=== PATIENT | female | born 1980 | race Asian ===

== ENCOUNTER → 2017-06-22 | Outpatient (CLI) | payer BC ==
[~2017-06-22] MED LIST: ASPI81TA28 PO; FERR1TAB61 PO; PRENTAB26 PO
[2017-06-22 13:04] LABS: BASO % 0.3 %; BASO ABS # 0.02 K/uL (0-0.2); COMPLETE YES; EOS % 0.6 %; IG% 0.4 %; LYMPH % 16.9 %; MEAN CELL VOLUME 92.8 fL (80-100); MEAN CORPUSCULAR HEMOGLOBIN 31.2 pg (25-34); MEAN CORPUSCULAR HGB CONC 33.6 g/dl (32-36); MEAN PLATELET VOLUME 11.9 fL (7.4-10.4); MONO % 6.5 %; NEUT % 75.3 %; PLATELET COUNT 155 K/uL (130-400); RED BLOOD COUNT 3.88 M/uL (4.2-5.4); WHITE BLOOD COUNT 7.08 K/uL (4.8-10.8)
== END | disposition home or self-care (01) ==
LOC: C.LAB 12:19
PROVIDERS: ATTEND Obstetrics & Gynecology
DX: Z01.818 Encounter for other preprocedural examination (principal)

== ENCOUNTER 2017-07-14 06:44 | Inpatient (IN) | payer BC, OTHER ==
--- NOTE | 2017-06-22 12:47 | PAT Medication Instructions ---
Service Date Jun 22, 2017. Current Home Medication List Aspirin (Aspirin Ec), 81 MG PO HS Ferrous Sulfate (Iron), 1 TAB PO BID Multivit/Min/Iron/Fol Ac/Pren ( Vitamin), 1 TAB PO noon Medication Instructions For Your Scheduled Surgery - Take the following medications as scheduled the day before before surgery: Aspirin (Aspirin Ec), 81 MG PO HS Ferrous Sulfate (Iron), 1 TAB PO BID Multivit/Min/Iron/Fol Ac/Pren ( Vitamin), 1 TAB PO noon - No medications the morning of the surgery. Nothing to eat or drink after midnight If you have any questions please call us at [phone] or [phone] or [phone]
[~2017-07-14] VITALS: Ht 167.6 cm; Wt 71.0 kg
[2017-07-14] VITALS (14 sets, daily range): BP systolic 112–120; BP diastolic 69–76; PULSE 62–77; TEMP 36.9–37; O2SAT 95–98; Ht 167.6 cm; Wt 71.0 kg
[~2017-07-14 06:44] MED LIST changes: +CITRIC ACID/SODIUM CITRATE 15 ML UDC PO SCH
[2017-07-14] MEDS ORDERED: FENTANYL CITRATE INJ 50 MCG/1 ML 2 ML VIAL ONE (07:24)
[2017-07-14] MEDS ORDERED: OXYTOCIN INJ 10 UNITS/ML VIAL ONE ×3 (07:24→10:13)
[2017-07-14] MEDS ORDERED: MoRPHine SULFATE PF 1 MG/ML 10 ML AMP/VIAL ONE (07:24)
[2017-07-14] MEDS ORDERED: EpHEDrine SULFATE INJ 50 MG/ML AMP ONE (07:25)
[2017-07-14] MEDS ORDERED: PHENYLEPHRINE HCL INJ 10 MG/ML VIAL ONE (07:25)
[2017-07-14] MEDS ORDERED: LACTATED RINGER'S 1000ML 1,000 ML IV SCH (07:30)
[2017-07-14] MEDS ORDERED: CEFAZOLIN IV 2,000 MG in SYRINGE 0 ML IV STA (07:32)
[2017-07-14 07:53] LABS: HEMATOCRIT 37.6 % (37-47); HEMOGLOBIN 12.8 g/dL (12.0-16.0); MEAN CELL VOLUME 92.4 fL (80-100); MEAN CORPUSCULAR HEMOGLOBIN 31.4 pg (25-34); MEAN PLATELET VOLUME 12.8 fL (7.4-10.4); PLATELET COUNT 147 K/uL (130-400); RED CELL DISTRIBUTION WIDTH CV 14.4 % (11.5-14.5); RED CELL DISTRIBUTION WIDTH SD 48.7 fL (36.4-46.3); WHITE BLOOD COUNT 6.09 K/uL (4.8-10.8)
[2017-07-14] MEDS ORDERED: NALOXONE HCL INJ 1 MG in SODIUM CHLORIDE 0.9% 1000ML 1,000 ML IV PRN ×5 (08:01→10:11)
--- NOTE | 2017-07-14 08:11 | History & Physical Bridge Note ---
H&P Re-Evaluation Bridge Note: I have examined the patient, reviewed the History & Physical and in the interval since the performance of the History & Physical I have noted the following changes of clinical significance: No changes noted
[2017-07-14] MEDS ORDERED: ONDANSETRON INJ 2 MG/ML 2 ML VIAL IV PRN ×2 (08:15→10:15)
[2017-07-14] MEDS ORDERED: PHENYLEPHRINE 100MCG/ML 5ML SYR IV PRN (08:15)
[2017-07-14] MEDS ORDERED: NALBUPHINE HCL INJ 10 MG/ML AMP IV PRN ×2 (08:15→10:15)
[2017-07-14] MEDS ORDERED: KETOROLAC TROMETHAMINE 30 MG/ML VIAL IV. PRN (08:15)
[2017-07-14] MEDS ORDERED: EpHEDrine SULFATE INJ 50 MG/ML AMP IV PRN ×2 (08:15→10:15)
[2017-07-14] MEDS ORDERED: ATROPINE SULFATE 0.1 MG/ML 5ML SYR IV PRN (08:15)
[2017-07-14] MEDS ORDERED: PROMETHAZINE HCL INJ 12.5 MG in SODIUM CHLORIDE 0.9% 50ML 50 ML IV PRN (08:15)
[2017-07-14] MEDS ORDERED: DiphenhydrAMINE HCL 50 MG/ML VIAL IV PRN ×2 (08:15→10:15)
[2017-07-14] MEDS ORDERED: FENTANYL CITRATE INJ 50 MCG/1 ML 2 ML VIAL IV PRN (08:15)
[2017-07-14] MEDS ORDERED: MISOPROSTOL 200 MCG TAB ONE (10:00)
[2017-07-14] MEDS ORDERED: LACTATED RINGER'S 1000ML 500 ML IV PRN (10:11)
[2017-07-14] MEDS ORDERED: NALOXONE HCL INJ 0.08 MG in SYRINGE 1.8 ML IV PRN (10:11)
[2017-07-14] MEDS ORDERED: SODIUM CHLORIDE 0.9% 1000ML 1,000 ML IV PRN (10:11)
[2017-07-14] MEDS ORDERED: NO NARCOTICS OR SEDATIVES SCH (10:15)
[2017-07-14] MEDS ORDERED: HYDROCORTISONE ACETATE 25 MG SUPP PR PRN (10:15)
[2017-07-14] MEDS ORDERED: NALOXONE HCL 0.4 MG/1 ML VIAL/CARP IV PRN (10:15)
[2017-07-14] MEDS ORDERED: LANOLIN OINT EXT PRN (10:15)
[2017-07-14] MEDS ORDERED: BENZOCAINE 20% AER SPR 82.5 GM CAN EXT PRN (10:15)
[2017-07-14] MEDS ORDERED: METOCLOPRAMIDE HCL INJ 20 MG in SODIUM CHLORIDE 0.9% 50ML 50 ML IV PRN (10:15)
[2017-07-14] MEDS ORDERED: SENNA 8.6 MG TAB PO PRN (10:15)
[2017-07-14] MEDS ORDERED: MoRPHine SULFATE PF 1 MG/ML 10 ML AMP/VIAL EPI PRN (10:15)
[2017-07-14] MEDS ORDERED: MAGNESIUM HYDROXIDE SUSP 30 ML UDC PO PRN (10:15)
[2017-07-14] MEDS ORDERED: SUPERCREAM 0.870 % 15GM JAR EXT PRN (10:15)
[2017-07-14] MEDS ORDERED: MoRPHine SULFATE 2 MG/ML CARP IV PRN (10:15)
[2017-07-14] MEDS ORDERED: MEPERIDINE HCL 25 MG/ML CARP IV PRN (10:15)
[2017-07-14] MEDS ORDERED: PROMETHAZINE HCL INJ 25 MG in SODIUM CHLORIDE 0.9% 50ML 50 ML IV PRN (10:15)
--- NOTE | 2017-07-14 10:40 | [facility] Post Operative Brief Note ---
Immediate Operative Summary Operative Date Jul 14, 2017. Pre-Operative Diagnosis Twin ; Cepahlic/Transverse Presentation;Malpresentation Post-Operative Diagnosis Same Procedure(s) Performed Primary Caesarean Section; Delivery of a live male child at 0907 and live female child at [address] Guillory Trade Economist Surgeon(s) Dr. Anthony Estimated Blood Loss 800 cc Findings dictated Fluids (cc crystalloids) 1200 Specimens cord blood for twin A and B placenta-exam Complication(s) None Disposition L&D
--- NOTE | 2017-07-14 11:08 | OPERATIVE REPORT ---
DATE OF OPERATION: 07/14/2017 INDICATION FOR PROCEDURE: This is a 37-year-old twin gestation at term, baby A is cephalic and baby B is in transverse presentation. After discussion with the patient, risks and benefits of section versus vaginal delivery the patient decided to undergo section. PREOPERATIVE DIAGNOSES: 1. Twin at term, di/di twins. 2. Cephalic transverse presentation. POSTOPERATIVE DIAGNOSIS: Same. PROCEDURE: section. SURGEON: Dr. Guillory. LENS COATER: Dr. Anthony. ANESTHESIA: Spinal. ESTIMATED BLOOD LOSS: 800 mL. IV FLUIDS: 1200 mL. URINE: 100 mL. FINDINGS: Live infants. Baby A was cephalic male, and details are in the pediatric record. Baby B was transverse and female. Abdominal findings are otherwise unremarkable. The uterus, adnexa appeared grossly normal. SPECIMEN: 1. Cord blood for baby A and B. 2. Placenta. DRAINS: Rehman catheter. COMPLICATIONS: None. DISPOSITION: Stable in recovery room. PROCEDURE: The patient was taken to the operating room where she was prepped and draped in normal sterile fashion. Timeout was called. A Pfannenstiel incision was made and carried down to the fascia. Fascia was incised in the midline and extended laterally on both sides. The fascia was sharply dissected off the rectus abdominis muscle. Peritoneum was identified and entered sharply. Once inside the abdomen, an Ricky retractor was placed for retraction. Vesicouterine peritoneum was sharply dissected off the lower segment of the uterus. A transverse incision was made with a scalpel and extended laterally on both sides with bandage scissors. Amniotomy was performed on baby A. Baby A was cephalic and delivered. Cord clamped and cut and handed over to the pediatric team. Amniotomy was performed on the . was easily rotated from transverse to cephalic presentation and delivered. Cord was clamped and cut and handed over to the pediatric team as well. Cord blood was then obtained from both cords. Placenta was removed and sent to pathology for pathological analysis. The uterus was exteriorized and cleared of all clots and debris. Uterus was closed in 2 layers using Vicryl suture. Copious amount of irrigation was used to irrigate the abdomen. There was good hemostasis at this point. The vesicouterine peritoneum was approximated using plain suture. Uterus was returned into the abdominal cavity and more irrigation was used to irrigate the abdomen. There was good hemostasis at this point. The Ricky retractor was removed and the peritoneum closed with plain suture. The rectus abdominus muscle was approximated using a [id number] closure, plain suture was used. The fascia was closed in a running fashion using Vicryl stitch. SubQ was closed with plain suture and skin closed with 4-0 Monocryl. All instruments were removed from the abdomen and accounted for x2 including sponges, needles and retractors. Babies and mother are doing well in recovery. I attest to the content of the Intraoperative Record and any orders documented therein. Any exception s are noted below.
--- NOTE | 2017-07-14 11:29 | Anesthesiology Progress Note ---
Anesthesia Post Op Note Date & Time Jul 14, 2017 at 11:29 Notes Mental Status: alert / awake / arousable, participated in evaluation Pt Amnestic to Procedure: Yes Nausea / Vomiting: adequately controlled Pain: adequately controlled Airway Patency, RR, SpO2: stable & adequate BP & HR: stable & adequate Hydration State: stable & adequate Neuraxial Anesthesia: was administered, sensory block is resolving Anesthetic Complications: no major complications apparent
[2017-07-14] MEDS: OXYTOCIN INJ 20 UNITS in LACTATED RINGER'S 1000ML 1,000 ML IV SCH ×2 (11:40→19:49)
[2017-07-14] MEDS: KETOROLAC TROMETHAMINE 30 MG/ML VIAL IV. PRN ×2 (11:47→17:35)
[2017-07-14] MEDS: SIMETHICONE 80 MG CHEW PO SCH ×3 (13:11→19:49)
[2017-07-14] MEDS: DOCUSATE SODIUM 100 MG CAP PO SCH (19:49)
[2017-07-15] VITALS (9 sets, daily range): BP systolic 100–117; BP diastolic 60–71; PULSE 68–80; TEMP 36.4–36.8; O2SAT 96–98
[2017-07-15] MEDS: KETOROLAC TROMETHAMINE 30 MG/ML VIAL IV. PRN (00:08)
[2017-07-15] MEDS ORDERED: ZOLPIDEM TARTRATE 5 MG TAB PO PRN (03:00)
[2017-07-15] MEDS ORDERED: ONDANSETRON INJ 2 MG/ML 2 ML VIAL IV PRN (03:00)
[2017-07-15] MEDS ORDERED: DC INTRASPINAL MORPHINE ONE (03:00)
[2017-07-15] MEDS ORDERED: DiphenhydrAMINE HCL 50 MG/ML VIAL IV PRN (03:00)
[2017-07-15] MEDS ORDERED: MEPERIDINE HCL 50 MG/ML CARP IV PRN ×2 (03:00)
[2017-07-15] MEDS ORDERED: OXYCODONE/ACETAMINOPHEN 5-325 TAB PO PRN ×2 (03:00)
[2017-07-15] MEDS ORDERED: KETOROLAC TROMETHAMINE 30 MG/ML VIAL IV. PRN (03:00)
[2017-07-15] MEDS ORDERED: PROMETHAZINE HCL INJ 25 MG in SODIUM CHLORIDE 0.9% 50ML 50 ML IV PRN (03:00)
[2017-07-15 06:59] LABS: BASO % 0.1 %; BASO ABS # 0.01 K/uL (0-0.2); EOS % 0.3 %; EOS ABS # 0.03 K/uL (0-0.5); HEMATOCRIT 34.2 % (37-47); HEMOGLOBIN 11.5 g/dL (12.0-16.0); IG# 0.03 K/uL (0.00-0.02); LYMPH % 15.5 %; LYMPH ABS # 1.41 K/uL (1.2-3.4); MEAN CELL VOLUME 90.7 fL (80-100); MEAN CORPUSCULAR HEMOGLOBIN 30.5 pg (25-34); MEAN CORPUSCULAR HGB CONC 33.6 g/dl (32-36); MEAN PLATELET VOLUME 11.7 fL (7.4-10.4); MONO % 7.7 %; NEUT % 76.1 %; NEUT ABS # 6.91 K/uL (1.4-6.5); PLATELET COUNT 128 K/uL (130-400); RED CELL DISTRIBUTION WIDTH CV 14.3 % (11.5-14.5); RED CELL DISTRIBUTION WIDTH SD 47.4 fL (36.4-46.3); WHITE BLOOD COUNT 9.09 K/uL (4.8-10.8)
[2017-07-15] MEDS: DOCUSATE SODIUM 100 MG CAP PO SCH ×2 (07:49→20:05)
[2017-07-15] MEDS: FERROUS SULFATE 325 MG TAB PO SCH (07:50)
[2017-07-15] MEDS: SIMETHICONE 80 MG CHEW PO SCH ×4 (07:50→20:05)
[2017-07-15] MEDS: PRENATAL VITAMIN TAB PO SCH (07:50)
[2017-07-15] MEDS: IBUPROFEN 600 MG TAB PO PRN ×2 (07:51→14:44)
--- NOTE | 2017-07-15 08:31 | OB/GYN Progress Note ---
PHOTO JOURNALIST Progress Note Date of Service: Jul 15, 2017. Patient is seen and examined. She feels well, no complaints. Pain is under control with oral meds. Ambulating without dizziness Voiding without difficulty Tolerating regular diet with out N&V Flatus + BM NEG Bleeding is minimal No fever/ chills/ CP/ SOB/ N&V/ Leg pain Breast feeding her twins without problems Date Time Temp Pulse Resp B/P (MAP) Pulse Ox O2 Delivery O2 Flow Rate FiO2 07/15/17 04:00 36.7 72 18 104/69 (81) Room Air 07/15/17 03:00 18 96 07/15/17 02:00 16 96 07/15/17 01:00 16 96 07/15/17 00:00 18 96 07/14/17 23:55 96 Room Air 07/14/17 23:55 37.0 67 18 117/76 (90) Room Air 07/14/17 23:55 18 96 07/14/17 23:00 16 96 07/14/17 22:30 18 95 07/14/17 21:30 18 96 07/14/17 20:30 18 97 07/14/17 19:15 36.9 62 18 112/69 (83) 98 Room Air 07/14/17 19:15 18 98 07/14/17 18:30 16 97 07/14/17 17:30 16 97 07/14/17 16:30 18 96 07/14/17 15:20 96 Room Air 07/14/17 15:20 37.0 67 18 120/72 (88) 96 Room Air 07/14/17 15:20 18 96 07/14/17 14:30 16 95 07/14/17 14:08 18 96 07/14/17 14:08 36.9 77 18 116/69 (85) 96 Room Air 07/14/17 13:00 16 95 07/14/17 13:00 36.9 76 16 119/72 (88) 95 Room Air 07/14/17 12:25 95 Room Air PE: General: Alert, orientedx3, NAD CVS: S1S2 RRR Lungs; CTAB Abd: soft, NT, ND, BS+, fundus firm, below Umbilicus Dressing: Clean, dry, intact Perineum intact, Lochia rubra minimal Ext; NT, no edema AP: 37 yo s/p C Section, pod# 1 VSS Afebrile doing well Continue routine postop care Encourage ambulation, PO intake All questions were answered
[2017-07-15] MEDS ORDERED: BISACODYL 5 MG TABEC PO ONE (22:00)
[2017-07-16] MEDS: IBUPROFEN 600 MG TAB PO PRN ×3 (01:52→20:33)
[2017-07-16 06:18] LABS: HEMATOCRIT 31.7 % (37-47); HEMOGLOBIN 10.8 g/dL (12.0-16.0)
[2017-07-16 07:35] VITALS: BP 120/79; PULSE 80; TEMP 36.5
[2017-07-16] MEDS: DOCUSATE SODIUM 100 MG CAP PO SCH ×2 (08:38→20:29)
[2017-07-16] MEDS: FERROUS SULFATE 325 MG TAB PO SCH (08:38)
[2017-07-16] MEDS: PRENATAL VITAMIN TAB PO SCH (08:38)
[2017-07-16] MEDS: SIMETHICONE 80 MG CHEW PO SCH ×4 (08:38→20:29)
--- NOTE | 2017-07-16 10:19 | OB/GYN Progress Note ---
DESIGN DRAFTER Progress Note Date of Service Jul 16, 2017. Subjective conversation w/ patient, physical exam Ambulation: ambulating normally Voiding: no voiding problems Passing Gas: Yes Diet Tolerance: Regular Diet Lochia: Small Feeding Type: Breast Feeding Pain: 2-3/10 Notes: Doing well. Pain well controlled. Tolerating regular diet, +flatus, +BM. Ambulating without difficulty. Lochia minimal. Objective Vital Signs Date Time Temp Pulse Resp B/P (MAP) Pulse Ox O2 Delivery O2 Flow Rate FiO2 07/16/17 07:35 Room Air 07/16/17 07:35 36.5 80 18 120/79 (93) Room Air 07/15/17 23:45 98 Room Air 07/15/17 23:45 36.4 80 18 117/60 (79) 98 Room Air 07/15/17 15:35 36.7 78 18 116/71 (86) 98 Room Air 07/15/17 15:35 98 Room Air 07/15/17 12:00 36.8 77 18 100/64 (76) Room Air Physical Exam General Appearance: WELL-APPEARING Respiratory/Chest: chest non-tender, lungs clear Cardiovascular: regular rate, rhythm Abdomen: normal bowel sounds, soft Fundus: Firm Incision Description: Clean, Dry & Intact Extremities: normal range of motion, non-tender, no calf tenderness Laboratory Results Last 24 Hours Test 07/16/17 06:10 Hemoglobin 10.8 g/dL Hematocrit 31.7 % Assessment and Plan Post-Op Day Number: 2 Continue Routine Care: -Continue routine postop care -Anticipate D/C home tomorrow.
[2017-07-16] MEDS ORDERED: MTR600X PO (10:20)
[2017-07-16] MEDS ORDERED: OXYC-57 PO (10:20)
--- NOTE | 2017-07-16 10:21 | Discharge Instructions ---
Discharge Instructions Date of Service Jul 16, 2017. Admission Reason for Admission: Twin Gestation At Term 38 Weeks Discharge Discharge Diagnosis / Problem: S/P primary Section twins Discharge Goals Goal(s): Routine recovery after Activity Recommendations Activity Limitations: per Instructions/Follow-up section . Instructions / Follow-Up Instructions / Follow-Up ACTIVITY RECOMMENDATIONS: * Gradual return to full activity over the next 2-3 weeks. * No lifting - nothing heavier than baby over the next 2-3 weeks. * Do not engage in vigorous exercise, sexual activity or sports until cleared by your physician. * Do not drive or operate any motorized equipment until cleared by your physician. * You may shower/bathe daily. BREAST CARE: If you are not breast feeding: * Wear a supportive bra 24 hours a day for one to two weeks. * Avoid stimulating your breasts and nipples as much as possible during the first few weeks after delivery. * When taking a shower, have the warm water hit your back, not breasts. * When your breasts feel full, apply ice packs. Usually three to four times a day helps ease the discomfort. * Take a mild pain medication (Tylenol/Motrin) when you are uncomfortable. If breast feeding: * Use breast milk to lubricate nipples. Lansinoh cream may be used for sore nipples. You do not need to remove cream prior to breast feeding. If using a different brand of cream, check the label for directions regarding removal of cream prior to nursing. * Wear a supportive bra. * If having problems with breasts or breast feeding, call a life consultant or your health care provider. OVER THE COUNTER MEDICATION: * For discomfort or pain, you may use Acetaminophen (Tylenol), Ibuprofen (Advil ), or Naproxen (Aleve) following the package directions. * For constipation you may use Colace following the package directions. SPECIAL CARE INSTRUCTIONS: When you are discharged from the hospital, it is important for you to follow the instructions listed below: * During the first week at home, you should be able to care for yourself and your baby. In addition, the usual light household activities are encouraged. * Limit your activities to the way you feel. Do not try to clean the house or move furniture. Be sensible. * If you actively engage in sports and have done so up until the time of your delivery, you may resume these activities as soon as you feel able. This may take up to one month or even longer. Use good judgment. * Continue to take your vitamins for at least six weeks after the of your baby. * Your diet need not be limited unless you were on a special diet before your delivery. Breast-feeding mothers need around 2500 calories per day and at least 64-80 ounces of fluid per day (8 to 10 glasses). * You should eat foods from the four major food groups. Crash diets or fad diets are to be avoided. Eating lean meats, fresh fruits and vegetables, low-fat dairy products, high fiber foods and a regular exercise program, will help you get back to your pre- weight without putting your health at risk. * Constipation is sometimes a problem after delivery. Take a mild laxative as needed. If breast feeding, Milk of Magnesia is acceptable to use. You may use a suppository or Fleets enema if no episiotomy. * A daily shower or tub bath is suggested. Be sure to thoroughly and gently dry the perineum. * A bloody vaginal discharge will usually continue until around four weeks post . A small amount of bleeding may continue for as long as six weeks. Vaginal discharge changes from the bright red bleeding after delivery to pink then brownish and finally yellowish-pink before becoming white and disappearing. * Bleeding may increase with activity. Your first period may come in 4-8 weeks. If you are breast feeding, your period may be delayed even longer. * [place] (sex) can begin whenever both you and your partner feel comfortable and do not have any form of genital infection. It is recommended that you wait at least six weeks for internal and external healing to occur. If you have questions, please talk to your health care practitioner. A condom should be used to prevent infection and . * Foreplay, gentle intercourse and lubrication is very important the first several times to prevent pain. A water-based lubricant such as K-Y jelly or Astroglide may be used. * Tampons and/or Douching should be avoided until after six weeks check-up. * If you have RH negative blood and your baby is RH positive, you will receive RHOGAM by injection prior to discharge. The nurse will give you a card to keep with you that has the date and place that you received RHOGAM after delivery. * During your care, you had a Rubella screen done to check for the presence of rubella antibodies in your blood. If your test was negative, you will receive a Rubella vaccine prior to discharge. This vaccine may cause a fever, soreness at the injection site and flu-like symptoms. If these symptoms persist, notify your health care practitioner. is not advised for three months after a Rubella vaccine. * Verbalizes understanding of car seat law as reviewed with patient nursing. * Car Seat hand-out given and reviewed with patient by nursing. * Shaken baby information reviewed with patient by nursing. Call you doctor if: * Heavy bleeding (saturating several pads an hour) or passing clots the size of your fist. * A fever >101 degrees F (38.3 degrees C) on two occasions four hours apart and /or chills. * Unusual pain in the pelvic or vaginal areas. Pain should improve each day . * Call the doctor for any increased redness, drainage or swelling around the incision and any pain unrelieved by prescribed pain medication. * Any signs or symptoms of phlebitis (possible blood clots forming in the veins ): leg pain, warm, red or swollen area on leg. * "Baby Blues" lasting longer than two weeks. If you have any questions or concerns, call your health care practitioner at . FOLLOW-UP VISIT: * Incision check (staple removal) in 1 week. Please call doctor's office at to set up appointment. * Please call the office at to schedule a 6 week examination. It is important you keep this appointment. * It is important for you to make arrangements for either yearly or twice yearly check-ups thereafter. Current Hospital Diet Patient's current hospital diet: Regular OB Diet Discharge Diet Recommended Diet: Regular OB Diet Procedures Procedures Performed: Primary Caesarean Section; Delivery of a live male child at 0907 and live female child at 0908 Pending Studies Studies pending at discharge: no Medical Emergencies . Who to Call and When: Medical Emergencies: If at any time you feel your situation is an emergency, please call 911 immediately. . Non-Emergent Contact Non-Emergency issues call your: Primary Care Provider, Asian Studies Program Chair . . "Provider Documentation" section prepared by Chapo Rojas. . VTE Core Measure Inpt VTE Proph given/why not?: Treatment not indicated [place] Drug Monitoring Program Search Results: patient reviewed within database, no issues identified
[2017-07-16 15:45] VITALS: BP 115/70; PULSE 78; TEMP 36.4
[2017-07-16 23:25] VITALS: BP 111/69; PULSE 73; TEMP 36.6; O2SAT 96
[2017-07-17 07:19] VITALS: BP 96/60; PULSE 72; TEMP 36.8
[2017-07-17] MEDS: SIMETHICONE 80 MG CHEW PO SCH (07:24)
[2017-07-17] MEDS: PRENATAL VITAMIN TAB PO SCH (07:24)
[2017-07-17] MEDS: DOCUSATE SODIUM 100 MG CAP PO SCH (07:25)
[2017-07-17] MEDS: FERROUS SULFATE 325 MG TAB PO SCH (07:25)
[2017-07-17] MEDS: IBUPROFEN 600 MG TAB PO PRN (07:29)
--- NOTE | 2017-07-17 10:15 | OB/GYN Progress Note ---
CONTINUOUS MINER OPERATOR HELPER Progress Note Date of Service Jul 17, 2017. Subjective conversation w/ patient Ambulation: ambulating normally Voiding: no voiding problems Passing Gas: Yes Diet Tolerance: Regular Diet Lochia: Small Feeding Type: Breast Feeding Pain: 2/10 Notes: Doing well, no concerns. Pain well controlled. Tolerating regular diet. Ambulating without difficulty. Would like to go home today. Objective Vital Signs Date Time Temp Pulse Resp B/P (MAP) Pulse Ox O2 Delivery O2 Flow Rate FiO2 07/17/17 09:10 Room Air 07/17/17 07:19 36.8 72 16 96/60 (72) 07/16/17 23:25 36.6 73 16 111/69 (83) 96 Room Air 07/16/17 23:25 Room Air 07/16/17 15:45 Room Air 07/16/17 15:45 36.4 78 18 115/70 (85) Room Air Physical Exam General Appearance: WELL-APPEARING Respiratory/Chest: chest non-tender, lungs clear Cardiovascular: regular rate, rhythm Abdomen: normal bowel sounds, soft Fundus: Firm Incision Description: Clean, Dry & Intact Extremities: normal range of motion, non-tender, no calf tenderness Assessment and Plan Post-Op Day Number: 3 Continue Routine Care: -D/C home today -F/U in 1 week.
[2017-07-17 11:00] VITALS: BP_DIAS 60; PULSE 72; TEMP 36.8
== END 2017-07-17 11:35 | disposition home or self-care (01) | DRG 765 ==
LOC: C.LD 06:44 → EDSTATUS 08:30 → C.OBG 12:25
PROVIDERS: ADMIT Obstetrics & Gynecology; ATTEND Obstetrics & Gynecology
PROC: 10D00Z1 Extraction of Products of Conception, Low, Open Approach (ICD-10-PCS; principal; 2017-07-14 08:30)
DX: O32.2XX2 Maternal care for transverse and oblique lie, fetus 2 (principal); O30.043 Twin pregnancy, dichorionic/diamniotic, third trimester; O32.2XX1 Maternal care for transverse and oblique lie, fetus 1; O09.523 Supervision of elderly multigravida, third trimester; Z3A.38 38 weeks gestation of pregnancy; Z37.2 Twins, both liveborn